=== PATIENT | male | born 1985 | race Hispanic/Latino ===

== ENCOUNTER 2017-09-22 21:29 | Inpatient (IN) | payer OTHER, SELFPAY ==
[~2017-09-22 21:29] MED LIST: ISOVUE-370 76%-LOCM 1 ML ONE
--- NOTE | 2017-09-22 21:59 | RAD ---
RADIOGRAPH OF CHEST SINGLE VIEW 09/22/17 INDICATION: Posttraumatic pain. FINDINGS: Elevation of the right hemidiaphragm. No consolidation. The cardiac silhouette is accentuated by port able technique. IMPRESSION: No focal consolidation. POS: [facility]
--- NOTE | 2017-09-22 22:00 | RAD ---
FRONTAL VIEW PELVIS 09/22/17 INDICATION: Posttraumatic pelvic injury, pain. FINDINGS: No acute fracture or dislocation identified. IMPRESSION: No acute osseous abnormality of the pelvis. POS: [facility]
[2017-09-22] MEDS ORDERED: Adacel (T-DAP) 0.5 ML VIAL ONE (22:05)
[2017-09-22] MEDS ORDERED: CEFAZOLIN/Water 2 GM/20 ML SYRINGE ONE (22:05)
[2017-09-22 22:06] LABS: #Eosinphils 0.1 thou/uL (0.0-0.7); #Lymphocytes 1.1 thou/uL (1.20-3.40); #Monocytes 0.5 thou/uL (0.11-0.59); #Neutrophils 10.9 thou/uL (1.40-6.50); %Basophils 0.3 % (0.0-1.0); %Eosinophils 0.7 % (0.0-10.0); %Lymphocytes 8.7 % (21.0-51.0); %Neutrophils 86.3 % (42.0-75.0); Hemoglobin 14.6 g/dL (14.0-18.0); Mean Corpuscular HGB CONC 34.6 g/dL (32.0-36.0); Mean Corpuscular Hemoglobin 34.5 pg (27.0-31.0); Mean Corpuscular Volume 99.7 fl (80.0-94.0); Platelet Count 281 thou/uL (130-400); RBC Distribution Width 11.9 % (11.5-14.5); Red Blood Cell (RBC) Count 4.24 mill/uL (4.70-6.10); White Blood Cell (WBC) Count 12.6 thou/uL (4.8-10.8)
[2017-09-22 22:12] LABS: PTT 30.1 SEC (22.9-36.1); Prothrombin Time 12.8 SEC (12.0-14.7)
--- NOTE | 2017-09-22 22:13 | CT ---
HEAD CT NONCONTRAST 09/22/17 INDICATION: Posttraumatic injury, pain, altered mental status. FINDINGS: There is a decompressed and comminuted anterior right parietal bone fracture with osseous decompressi on into the intracranial compartment which results in pneumocephalus, posttraumatic edema of the ante rior right cerebral hemisphere and underlying extra-axial hemorrhage likely subdural and subarachnoid in distribution. No significant shift of midline or evidence of ventriculomegaly IMPRESSION: Posttraumatic osseous deformity with depressed comminuted calvarial fracture producing underlying int racranial abnormality to include cerebral edema, and extra-axial hemorrhage as discussed above. Telephone call to ER physician, Patrick Oconnor, placed at 2156 hours, 09/22/17. Code CR POS: [facility]
--- NOTE | 2017-09-22 22:16 | CT ---
CERVICAL SPINE CT: 09/22/17 INDICATION: Neck injury, pain, posttraumatic injury. FINDINGS: There is no craniocervical distraction. No compression deformity or traumatic subluxation. No retropu lsion of bone in to the vertebral canal or acute facet malalignment. IMPRESSION: No acute osseous abnormality of the cervical spine. Notification placed to ER physician, Patrick Oconnor at 2156 hours, 09/22/17. Code CR POS: [facility]
[2017-09-22 22:26] LABS: Acetaminophen Less than 6.0 mcg/mL (10.0-30.0); Alcohol Less than 10 mg/dL (Less than 10); Salicylate Less than 8.0 mg/dL (15.0-30.0)
[2017-09-22 22:27] LABS: ALT (SGPT) 57 U/L (8-55); AST (SGOT) 49 U/L (5-34); Albumin 4.5 g/dL (3.4-4.8); Alkaline Phosphatase 95 U/L (40-150); Anion Gap 12 mmol/L (10-20); BUN (Urea Nitrogen) 9 mg/dL (8.4-25.7); Bilirubin, Total 0.8 mg/dL (0.2-1.2); Calc. Creatinine Clearance 0 mL/min (70-130); Calcium 9.5 mg/dL (7.8-10.44); Carbon Dioxide 28 mmol/L (23-31); Chloride 102 mmol/L (98-107); Estimated GFR-MDRD 85; Globulin 2.9 g/dL (2.4-3.5); Glucose 117 mg/dL (83-110); Potassium 3.5 mmol/L (3.5-5.1); Protein, Total 7.4 g/dL (5.8-8.1); Sodium 138 mmol/L (136-145)
--- NOTE | 2017-09-22 22:33 | CT ---
CT CHEST WITH CONTRAST CT ABDOMEN AND PELVIS WITH CONTRAST CT THORACIC SPINE WITH CONTRAST AND REFORMATTED IMAGING CT LUMBAR SPINE WITH CONTRAST AND REFORMATTED IMAGING 09/22/17 CLINICAL HISTORY: Posttraumatic injury, pain. FINDINGS: There is no evidence of pneumothorax, consolidation, or effusion. Thoracoabdominal aorta is nonaneury smal. There is low density liver which may relate to fatty infiltration. Correlate clinically. There is no acute posttraumatic sequela of the solid abdominal organs identified. The bowel is incompletely assessed without enteric contrast. The moderately distended unopacified urinary bladder is grossly u nremarkable. There is no free air or significant ascites. The imaged osseous structures reveal no acu te abnormality. No evidence of subluxation or compression deformity involving the thoracolumbar spine . IMPRESSION: No definite acute posttraumatic sequela evident. Telephone call of findings placed to the ER physician, Patrick Oconnor, at 2218 hours, 09/22/17. Code CR POS: [facility]
[2017-09-22] MEDS ORDERED: hydrALAZINE 20 MG/ML VIAL SLOW IVP PRN (22:51)
[2017-09-22] MEDS ORDERED: Ondansetron HCl/PF 4 MG/2 ML Vial IVP PRN (22:51)
[2017-09-22] MEDS ORDERED: Dextrose 5% in Water 1,000 ML IV PRN (22:51)
[2017-09-22] MEDS ORDERED: Dextrose 50% Abboject 50 ML SYRINGE SLOW IVP PRN (22:51)
[2017-09-22] MEDS ORDERED: Ondansetron ODT 4 MG TAB PO PRN (22:51)
--- NOTE | 2017-09-23 01:05 | CON ---
DATE OF CONSULTATION: 09/23/2017 HISTORY OF PRESENT ILLNESS: Patient is a 32-year-old man, who was brought to the emergency departmen t by EMS after falling at work from a height of roughly 20 feet fall and had been experiencing roughl y 15-20 minutes loss of consciousness. CT scan was performed that revealed a depressed skull fractur e, the right parietal bone with associated small subarachnoid hemorrhage. The depression is, noted t o have a full width of the calvarium. From neurologic standpoint, the patient is confused and disori ented. He can to tell us his name, date of , current date, or where he is at. PHYSICAL EXAMINATION: NEUROLOGIC: He has a nonfocal exam. He has good strength in the upper and lower extremities, falls on movements. HEENT: Pupils equally round and reactive to light. Extraocular movements are intact. There is no s ensory disturbance that I can discern. He does have a crescent shaped laceration measuring roughly 6 cm in diameter to the right parietal scalp. There is obvious depression in the skull of the parieta l bone at this level. RECOMMENDATION: Neurosurgery's recommendations at this time, would be observation overnight and cont inue n.p.o. status after midnight. He will need a right frontal craniotomy to repair the depressed f racture. Otherwise, I do not have any other additional intervention. Frederic Ulloa PA-C, dictating for Dr. Goodman.
--- NOTE | 2017-09-23 01:05 | HP ---
DATE OF SERVICE: 09/22/2017 ATTENDING PHYSICIAN: Dr. Bentley. TRAUMA ACTIVATION: Level 2. HISTORY OF PRESENT ILLNESS: This is a male approximately 32 years of age, who presented to [place] [facility] via EMS, status post fall reportedly greater than 20 feet. All history obtained from records review, as patient is amnestic of events and remains confused. There is no family or coworkers at bedside to corroborate his history. Patient was evaluated in the emergency room and found to have a scalp laceration, open skull fracture with traumatic brain injury. Upon my evaluation, the patient has a GCS of 14, E4 V4 M6. He is oriented to self only. Neurosurgery is also currently evaluating the patient. Trauma Services was asked to admit. Patient had a chief complaint of headache. PAST MEDICAL HISTORY: Unknown. HOME MEDICATIONS: Unknown. PAST SURGICAL HISTORY: Unknown, but patient is missing multiple toes on the right foot. SOCIAL HISTORY: Patient works at a power plant. Unknown alcohol, tobacco, or substance use. FAMILY HISTORY: Unknown. REVIEW OF SYSTEMS: Unable to obtain secondary to patient's confusion. PHYSICAL EXAMINATION: VITAL SIGNS: Blood pressure 127/83, pulse 107, respirations 18, O2 sat 99% on room air, temperature 98.5. GENERAL: Patient is resting in bed, no acute distress. HEAD: There is a 6-cm right anterior parietal scalp laceration that is curvilinear in shape. It appears to be full thickness. EYES: Pupils were PERRL. Extraocular movements are intact. NECK: Supple. Trachea is midline. C-collar is in place. There is report of posterior cervical tenderness per ER physician exam. CHEST/PULMONARY: Normal work of breathing. No tenderness to palpation. Lungs are clear to auscultation bilaterally. CARDIOVASCULAR: Tachycardic. No obvious murmurs, rubs, or gallops. ABDOMEN: Nontender, nondistended. Bowel sounds are positive. BACK: As being reported as having some tenderness in the mid thoracic region. MUSCULOSKELETAL: Bilateral upper extremities within normal limits. Left lower extremity within normal limits. There is a small abrasion to the right ramirez with multiple right toe amputation. NEUROLOGIC: GCS 14. No focal deficit is noted. LABORATORY FINDINGS: WBC 12.6, hemoglobin 14.6, hematocrit 42.3, platelet count 281. INR 1.0. Sodium 138, potassium 3.5, chloride 102, carbon dioxide 28 , BUN 9, creatinine 0.81, glucose 117. AST 49, ALT 57, lipase within normal limits. Blood alcohol level less than 10. RADIOGRAPHIC FINDINGS: X-ray of the chest was negative for acute cardiopulmonary process. X-ray of the pelvis was negative for acute fracture or dislocation or bony abnormality. CT of the C-spine was negative for acute fracture or dislocation. CT of the chest, abdomen, and pelvis with some right lower lobe consolidation, pulmonary contusion versus aspiration pneumonitis, but read by Radiology having no definite acute post-traumatic sequela. CT of the brain per Radiology read shows depressed comminuted calvarial fracture with evidence of peripheral edema, extraaxial hemorrhage/subdural and subarachnoid hemorrhage. ASSESSMENT: 1. Status post fall. 2. Open skull fracture. 3. Acute traumatic pain. 4. Acute encephalopathy secondary to above/traumatic brain injury/subarachnoid and subdural hemorrhage. PLAN: Admit to Trauma Services. We will admit to CCU for close neurological monitoring. Q.1 hour neuro checks. Neurosurgery has seen and evaluated the patient. They planned for operative intervention in the a.m. Patient should be n.p.o. at this time. Gentle IV fluid hydration. Perioperative pain management. Repeat CT in a.m. per Neurosurgery recommendations. Head of bed greater than 30 degrees. Systolic blood pressure less than 150. Plan for assessment and plan has been discussed with Dr. Bentley at the time of this dictation. [facility]
[2017-09-23] MEDS: Sodium Chloride 0.9% 1,000 ML IV SCH ×3 (01:27→21:15)
[2017-09-23] MEDS: Acetaminophen 1,000 MG in Premix Bag 1 BAG IVPB SCH ×4 (01:35→18:04)
[2017-09-23] MEDS ORDERED: Lorazepam 2 MG/ML VIAL ONE (05:02)
[2017-09-23 05:28] LABS: #Lymphocytes 1.7 thou/uL (1.20-3.40); #Monocytes 0.9 thou/uL (0.11-0.59); #Neutrophils 10.4 thou/uL (1.40-6.50); %Basophils 0.3 % (0.0-1.0); %Eosinophils 0.3 % (0.0-10.0); %Lymphocytes 12.8 % (21.0-51.0); %Monocytes 6.8 % (0.0-10.0); %Neutrophils 79.7 % (42.0-75.0); Hemoglobin 14.7 g/dL (14.0-18.0); Mean Corpuscular HGB CONC 34.3 g/dL (32.0-36.0); Mean Corpuscular Hemoglobin 34.3 pg (27.0-31.0); Mean Platelet Volume 7.5 fL (7.4-10.4); Platelet Count 259 thou/uL (130-400); Red Blood Cell (RBC) Count 4.28 mill/uL (4.70-6.10)
[2017-09-23 05:41] LABS: Anion Gap 15 mmol/L (10-20); BUN (Urea Nitrogen) 7 mg/dL (8.9-20.6); Calc. Creatinine Clearance 133 mL/min (70-130); Calcium 9.4 mg/dL (7.8-10.44); Carbon Dioxide 24 mmol/L (22-29); Chloride 104 mmol/L (98-107); Estimated GFR-MDRD Greater than 90; Glucose 104 mg/dL (70-105); Phosphorus 3.7 mg/dL (2.3-4.7); Potassium 3.7 mmol/L (3.5-5.1); Sodium 139 mmol/L (136-145)
[2017-09-23] MEDS ORDERED: CEFAZOLIN 2 GM in Sodium Chloride 0.9% 100 ML IVPB SCH (06:00)
[2017-09-23] MEDS: CEFAZOLIN/Water 2 GM/20 ML SYRINGE SLOW IVP SCH ×3 (06:07→21:15)
--- NOTE | 2017-09-23 07:55 | PDOC.GSPN ---
Surgery Progress Note: Subj - Subjective Patient reports: no new complaints (sleeping but awakens to questions) Surgery Progress Note: Obj - Vital signs Vital signs: Vital Signs - Most Recent Temp Pulse Resp BP Pulse Ox 98.6 F 97 24 H 100 09/23/17 00:30 09/23/17 00:30 09/23/17 00:30 09/23/17 00:30 - Physical Exam General: no distress Cardiovascular: regular rate and rhythm Respiratory: clear to auscultation Abdomen: soft, non tender Additional exam: Neuro: follows commands Surgery Progress Note: Results - Labs Result Diagrams: 09/23/17 04:20 09/23/17 04:20 Lab results: Laboratory Results - last 24 hr 09/23/17 09/23/17 04:20 04:20 WBC 13.0 H RBC 4.28 L Hgb 14.7 Hct 42.8 MCV 100.0 H MCH 34.3 H MCHC 34.3 RDW 12.0 Plt Count 259 MPV 7.5 Neutrophils % 79.7 H Lymphocytes % 12.8 L Monocytes % 6.8 Eosinophils % 0.3 Basophils % 0.3 Neutrophils # 10.4 H Lymphocytes # 1.7 Monocytes # 0.9 H Eosinophils # 0.0 Basophils # 0.0 Sodium 139 Potassium 3.7 Chloride 104 Carbon Dioxide 24 Anion Gap 15 BUN 7 L Creatinine 0.77 Estimated GFR (MDRD) Greater than 90 Glucose 104 Calcium 9.4 Phosphorus 3.7 Magnesium 2.0 Surgery Progress Note: A/P - Problem (1) Skull fracture Current Visit: Yes Code(s): S02.91XA - UNSP FRACTURE OF SKULL, INIT ENCNTR FOR CLOSED FRACTURE Status: Acute Assessment and Plan: To OT today for washout and closure
[2017-09-23] MEDS ORDERED: Thrombin 5000 UNITS/5 ML VIAL ONE (08:15)
[2017-09-23] MEDS ORDERED: Fentanyl 100 MCG/2 ML VIAL ONE ×2 (08:15→09:32)
[2017-09-23] MEDS ORDERED: Lidocaine 0.5%/Epinephrine 1:200,000 50 ml Vial ONE (08:15)
[2017-09-23] MEDS ORDERED: Sodium Chloride 0.9% 10 ML ONE (08:16)
--- NOTE | 2017-09-23 08:19 | CT ---
PRELIMINARY REPORT/[facility]/EMERGENCY AFTER HOURS PROCEDURE: EXAM: CT Head Without Intravenous Contrast EXAM DATE/TIME: 09/23/2017 5:17 AM CLINICAL HISTORY: 32 years old, male; Condition or disease; Other: F/u evaluation of skull FX, tbi; Additional info: Pr evious exam sent to [facility] under the name richard devries accession # [id number] TECHNIQUE: Axial computed tomography images of the head/brain without intravenous contrast. COMPARISON: No relevant prior studies available. FINDINGS: Brain: Right frontal skull fracture with 6mm depression. There is small subarachnoid blood and possib le intraparenchymal contusions underlying the fracture Ventricles: Unremarkable for patient age. No significant midline shift Soft tissues: No acute findings. Sinuses: Unremarkable. Mastoid air cells: No significant mastoid effusion. IMPRESSION: 1: Right frontal skull fracture with 6mm depression. 2: There is small subarachnoid blood and possible intraparenchymal contusions underlying the fracture Thank you for allowing us to participate in the care of your patient. Dictated and Authenticated by: Richard Mackay MD 09/23/2017 6:13 AM Central Time ([place] & [place]) FINAL REPORT CT HEAD NONCONTRAST: DATE: 09/23/17. TIME: Performed on an emergency basis at 0518 hours. HISTORY: Skull fracture. Traumatic brain injury. Followup. COMPARISON: 09/22/17. FINDINGS: Findings agree with the preliminary report from [facility]. Depressed right skull fracture an d underlying subarachnoid hemorrhage are stable. No new abnormalities are demonstrated. POS: [facility]
[2017-09-23] MEDS ORDERED: FLU VACC QS2017-18 36 mo. & older 0.5 ML SYRINGE IM ONE (09:00)
--- NOTE | 2017-09-23 09:17 | PRG ---
DATE OF SERVICE: 09/23/2017 SUBJECTIVE: Mr. Fitzpatrick was admitted late last evening, status post fall. He presented to the ER with an open depressed skull fracture. He had GCS of 14 upon arrival. Of note, he is a male th at does not speak Indian. We did make attempts to communicate with him via interpreters. Over the course of the last several hours in the ICU, he has remained stable. His major injury at this point remains his skull fracture. A repeat CT examination revealed stability with respect to a small degre e of extraaxial blood that was present. The patient does remain quite concussed and therefore he is confused. The plan will be surgical repair of the skull fracture and scalp laceration. We have not been able t o reach any additional family or friends for the purposes of consent. The patient himself remains to o confused and not oriented enough to provide consent form self. I do believe, however, this is in t he best interest of the patient to treat him surgically, as not doing so would result in permanent de fect of the skull and a high risk of infection.
[2017-09-23] MEDS ORDERED: Bacitracin Zinc Ointment 30 gm TUBE ONE (10:22)
[2017-09-23] MEDS ORDERED: HYDROcodone/Acetaminophen 7.5/325 mg Tablet PO PRN ×2 (10:30)
[2017-09-23] MEDS ORDERED: Ondansetron HCl/PF 4 MG/2 ML Vial IVP PRN (10:46)
[2017-09-23] MEDS ORDERED: Promethazine HCl 25 MG/ML VIAL SLOW IVP PRN (10:46)
[2017-09-23] MEDS ORDERED: Promethazine HCl 25 MG/ML VIAL IM PRN (10:46)
[2017-09-23] MEDS ORDERED: HYDROmorphone 2 MG/ML VIAL SLOW IVP PRN (10:46)
--- NOTE | 2017-09-23 10:57 | OP ---
DATE OF OPERATION: 09/23/2017 SURGEON: Nain Goodman M.D. STATION CAPTAIN: Frederic Ulloa PA-C INDICATION: Open depressed skull fracture. DIAGNOSIS: Open depressed skull fracture. ANESTHESIA: General. PROCEDURES PERFORMED: Elevation and treatment of depressed skull fracture and repair of complex scal p wound. TECHNIQUE: The patient was brought into the operating room and placed under general anesthesia. He was placed on the table in a supine position. A crescent-shaped defect was noted over the right post erior aspect of the frontal bone. This area was shaved and prepped and draped. After an appropriate operative pause, the traumatic incision was extended both laterally and medially for optimal exposur e of the underlying skull defect. Several bone fragments were removed and the other bone fragments w ere elevated to decompress the underlying surface of the brain. The area was copiously irrigated. T he skin and wound margins were debrided. After obtaining hemostasis and cleaning the wound, the bone was fashioned to fill the cranial defect using plates and screws. A subgaleal drain was placed and brought out through a separate puncture site from within the skin. The wound was closed in several l ramírez to repair the wound. The procedure came to an end without complication.
--- NOTE | 2017-09-23 11:33 | PRG ---
DATE OF SERVICE: 09/23/2017 Mr. Fitzpatrick this morning is stable. Last night he had been a little agitated leading up to his repeat CAT scan which revealed a stable depressed skull fracture of the right parietal bone with minimal deena rounding epidural and subarachnoid hemorrhage. Overall his functional status is the same as last nig ht, although he is a little more drowsy and difficult to awaken. The plan this morning will be to ge t him down for a right parietal bone crani-fracture or bone fracture lift to correct his depressed fr acture and to debride and washout the laceration there. We will be pursuing this in the next 30 galina david to an hour.
[2017-09-23] MEDS: Famotidine/PF 20 mg/2ml Vial SLOW IVP SCH (12:55)
[2017-09-23 13:12] VITALS: BMI 24.5
[2017-09-23] MEDS ORDERED: Propofol 200 MG/20 ML VIAL ONE (13:50)
[2017-09-23] MEDS ORDERED: Lidocaine 1% PF 5 ML VIAL ONE (13:50)
[2017-09-23] MEDS ORDERED: Dexamethasone 20 MG/5 ML VIAL ONE (13:50)
[2017-09-23] MEDS ORDERED: Glycopyrrolate 0.2 MG/ML 5 ML SYRINGE ONE (13:50)
[2017-09-23] MEDS ORDERED: PHENYLEPHRINE-NS 100 MCG/ML 10 ML SYRINGE ONE (13:50)
[2017-09-23] MEDS ORDERED: Ondansetron HCl/PF 4 MG/2 ML Vial ONE (13:50)
--- NOTE | 2017-09-23 13:55 | PRG ---
DATE OF SERVICE: 09/23/2017 SUBJECTIVE: The patient is hospital day #2 status post fall from approximately 20 feet, which he serena tained a depressed skull fracture. This morning, he was taken to the operating room by Neurosurgery, where he underwent an elevation and treatment of depressed skull fracture and repair of complex scal p wounds. The patient reportedly tolerated this procedure well and at the time of me seeing him on [facility] Critical Care Unit, he was still very drowsy postoperatively. He would open his eyes briefly, but would not follow any commands or verbalize. OBJECTIVE: VITAL SIGNS: Temperature 98.7, heart rate 89, respirations 14, oxygen saturation 100% on 2 liters vi a nasal cannula and blood pressure 107/68. GENERAL: The patient is resting in bed. The patient's [place] Coma Scale was [id number]. HEENT: The patient has a JAMISON drain located near the scalp with a clean, dry, and intact dressing. Pu pils are equal and reactive. Ears are clear without drainage. Nose is clear without drainage. Orop harynx appears clear. NECK: Trachea is midline. No JVD. CHEST: Clear to auscultation with moderate inspiratory and expiratory effort. HEART: Regular rate and rhythm. ABDOMEN: Soft, flat and nontender with hypoactive bowel sounds. EXTREMITIES: Capillary refill is less than 3 seconds. Pulses are 2+ in all 4 extremities. The ridge ent is moving all 4 extremities, but not to command. LABORATORY DATA: This morning, white blood cell count 13.0, hemoglobin 14.7, hematocrit 42.8 and david telets 259. Sodium 139, potassium 3.7, chloride 104, CO2 of 24, BUN 7, creatinine 0.77, glucose 104, magnesium 2.0 and phosphorus 3.7. ASSESSMENT AND PLAN: 1. Status post fall. 2. Depressed skull fracture. 3. Status post surgical procedure to elevate depressed skull fracture and repair of complex scalp wo und. Plan will be to continue the patient on the Critical Care Unit for serial neurologic exams and continue treatment guided by his [place] Coma Scale. Evaluation, examination, laboratory and radiogr aphic findings were discussed with Dr. Bentley at rounds this morning.
[2017-09-24] MEDS: Acetaminophen 1,000 MG in Premix Bag 1 BAG IVPB SCH (00:28)
--- NOTE | 2017-09-24 00:29 | PRG ---
DATE OF SERVICE: 09/23/2017 SUBJECTIVE: The patient is a 32-year-old male hospital day #2 status post fall from approximately 20 feet with depressed skull fracture. The patient's postop day 0 from elevation and treatment of depr essed skull fracture and repair of complex scalp wound. OBJECTIVE: Vital signs have been reviewed; otherwise stable. Physical exam is unchanged. is n oted. ASSESSMENT AND PLAN: We will continue care as noted in daily progress note. Continue to monitor. We will reassess in a.m. Followup a.m. labs as well.
[2017-09-24] MEDS: CEFAZOLIN/Water 2 GM/20 ML SYRINGE SLOW IVP SCH ×2 (05:54→14:20)
[2017-09-24] MEDS: Sodium Chloride 0.9% 1,000 ML IV SCH ×3 (05:59→14:20)
--- NOTE | 2017-09-24 07:27 | PRG ---
DATE OF SERVICE: 09/24/2017 HISTORY: Mr. Fitzpatrick is now in the first postoperative day after a right parietal craniectomy and repa ir of depressed skull fracture. He is doing very well. His drain is starting to taper and for me it looks to be clotted off at this point. We will go ahead and remove this and re-bandage the scalp. I think it is safe for him to start eating and to transition to a bedside chair. If he tolerates all this well, we can likely transition him to the floor. I will check him later to see how he is progr essing.
[2017-09-24] MEDS: Famotidine/PF 20 mg/2ml Vial SLOW IVP SCH (09:47)
--- NOTE | 2017-09-24 09:53 | PDOC.GSPN ---
Surgery Progress Note: Subj - Subjective Narrative: Patient awake but confused Surgery Progress Note: Obj - Vital signs Vital signs: Vital Signs - Most Recent Temp Pulse Resp BP Pulse Ox 98.5 F 75 16 98 09/24/17 08:00 09/23/17 20:00 09/23/17 20:00 09/23/17 20:00 - Physical Exam General: other (Confused) Cardiovascular: regular rate and rhythm Respiratory: clear to auscultation Abdomen: soft, non tender Surgery Progress Note: Results - Labs Result Diagrams: 09/23/17 04:20 09/23/17 04:20 Surgery Progress Note: A/P - Problem (1) Skull fracture Current Visit: Yes Code(s): S02.91XA - UNSP FRACTURE OF SKULL, INIT ENCNTR FOR CLOSED FRACTURE Status: Acute Assessment and Plan: Confusion hopefully improves in next few days Ok to transfer to floor
[2017-09-24] MEDS ORDERED: traMADol HCl 50 MG TAB PO PRN ×2 (10:09)
[2017-09-24] MEDS ORDERED: Acetaminophen 500 MG TAB PO SCH (13:00)
[2017-09-24] MEDS: Acetaminophen 325 MG TAB PO SCH ×2 (16:53→20:30)
[2017-09-24] MEDS ORDERED: HYDROcodone/Acetaminophen 7.5/325 mg Tablet PO PRN (19:34)
[2017-09-24] MEDS: Cephalexin 250 MG CAP PO SCH (20:30)
--- NOTE | 2017-09-24 23:12 | PRG ---
DATE OF SERVICE: 09/24/2017 SUBJECTIVE: This is a 32-year-old gentleman status post fall with traumatic brain injury and open sk ull fracture. He is postop day #1 status post right partial craniotomy and repair of depressed skull fracture. He was moved to the general surgical floor earlier today. Language barrier makes sarahyi jorje chief complaint difficult this evening, but patient did deny pain. He has been hemodynamically st able. OBJECTIVE: VITAL SIGNS: Reviewed and stable. The patient is afebrile, resting in bed, in no acute distress. B reathing is nonlabored. EXTREMITIES: Moves all extremities x4. ASSESSMENT AND PLAN: As documented in daily progress note. Continue care was ordered. Continue to monitor.
[2017-09-25] MEDS: Acetaminophen 325 MG TAB PO SCH ×5 (04:20→23:53)
--- NOTE | 2017-09-25 08:28 | PRG ---
DATE OF SERVICE: 09/25/2017 Mr. Fitzpatrick is a 32-year-old gentleman that sustained trauma with an associated depressed skull fractur e. He underwent operative repair. He is now 3 days out from presentation and surgery. From a neuro surgical perspective, he is recovering as I anticipated. His wound is clean, dry, and intact. From my perspective, he can be dismissed once the disposition has been obtained. We will follow up with jacob quinones in approximately 2 weeks in the outpatient setting.
[2017-09-25] MEDS: Cephalexin 250 MG CAP PO SCH ×2 (09:18→20:27)
[2017-09-25] MEDS: Famotidine/PF 20 mg/2ml Vial SLOW IVP SCH (09:18)
[2017-09-25] MEDS: Senokot S 8.6-50 MG TAB PO SCH ×2 (09:19→20:27)
[2017-09-25] MEDS: Polyethylene Glycol 3350 17 GM Packet PO SCH (09:19)
--- NOTE | 2017-09-25 13:31 | PRG ---
DATE OF SERVICE: 09/25/2017 Mr. Fitzpatrick is now postop day #2 following a right parietal skull fracture repair. He is doing well. He has been transferred to the floor. He has minimal pain at this time. There is still a language b arrier unfortunately, but it appears that he is in minimal pain, has been up on his feet, he is eatin g well. At this point not, it is just a function of finding proper disposition for him which I know social welfare clerk is working on. We will continue to follow.
[2017-09-25] MEDS: Famotidine 20 MG TAB PO SCH (20:27)
--- NOTE | 2017-09-25 23:11 | PRG ---
DATE OF SERVICE: 09/25/2017 SUBJECTIVE: This is a 32-year-old gentleman status post fall greater than 20 feet with a traumatic brain injury. The patient continues to work with physical therapy, occupational therapy. He is stable from a neurological standpoint. Awaiting final disposition. Pulmonary evaluation. The patient vocalized a mild headache, but otherwise had no complaints. OBJECTIVE: VITAL SIGNS: Reviewed and stable. The patient is afebrile, resting in bed in no acute distress. Breathing is nonlabored. EXTREMITIES: Moves all extremities x4. NEUROLOGICAL: GCS 14, secondary to confusion. ASSESSMENT AND PLAN: As documented in daily progress note. Continue care as ordered. Continue to monitor. Await final disposition, possibly to a rehab facilities in [facility]. DANIELA
--- NOTE | 2017-09-25 23:29 | PRG ---
DATE OF SERVICE: 09/25/2017 ATTENDING PHYSICIAN: Callum Canela DO SUBJECTIVE: The patient is now hospital day 4 status post fall from approximately 20 feet in which he sustained a depressed skull fracture. He is now postop day 2 status post procedure to elevate and treat the depressed skull fracture as well as repair of complex scalp wound. The patient has been transferred to the surgical floor from the ICU. On examination, the patient has been complicated by language barrier as the patient only speaks an unusual dialect of [place] that translators have reportedly had a hard time understanding. He vocalizes no complaints this morning and the dispatcher maintenance service reports no difficulty. OBJECTIVE: VITAL SIGNS: Blood pressure 122/86, pulse 85, temperature 98.8, respirations 18 , O2 sat 99% on room air. GENERAL APPEARANCE: The patient is resting in bed. He is slow to arouse, but wakes and was conversing with staff. RESPIRATORY: The patient's breath sounds are clear to auscultation bilaterally with normal effort. CARDIOVASCULAR: He has a regular rate and rhythm. EXTREMITIES: He is neurovascularly intact x4. He moves all extremities. NEUROLOGIC: The patient is alert and oriented to person and place today. His GCS is E3 V4 M6. LABORATORY FINDINGS: There are no labs to review today. RADIOGRAPHIC FINDINGS: There are no radiographs reviewed today. ASSESSMENT AND PLAN: 1. Status post fall from height. 2. Depressed skull fracture status post surgical repair. 3. Altered mental status. PLAN: 1. Plan will be to continue supportive care measures as ordered. Continue to trend GCS daily. 2. Case management is working to find placement options for this patient on discharge and it is unclear whether workman's compensation will apply since he was injured on the job and if not whether he will go to rehab or neuro rehabilitation. Case management is following. The patient was seen and examined on rounds this morning with Dr. Canela, who agrees with this assessment and plan. [facility]
[2017-09-26] MEDS: Acetaminophen 325 MG TAB PO SCH ×4 (05:30→23:39)
[2017-09-26 05:57] LABS: #Eosinphils 0.3 thou/uL (0.0-0.7); #Lymphocytes 1.3 thou/uL (1.20-3.40); #Monocytes 0.5 thou/uL (0.11-0.59); #Neutrophils 4.9 thou/uL (1.40-6.50); %Basophils 0.6 % (0.0-1.0); %Monocytes 7.2 % (0.0-10.0); %Neutrophils 69.3 % (42.0-75.0); Hemoglobin 13.9 g/dL (14.0-18.0); Mean Corpuscular HGB CONC 34.5 g/dL (32.0-36.0); Mean Corpuscular Hemoglobin 34.5 pg (27.0-31.0); Mean Platelet Volume 6.6 fL (7.4-10.4); Platelet Count 294 thou/uL (130-400); RBC Distribution Width 11.9 % (11.5-14.5); Red Blood Cell (RBC) Count 4.03 mill/uL (4.70-6.10)
[2017-09-26 06:32] LABS: Anion Gap 9 mmol/L (10-20); BUN (Urea Nitrogen) 6 mg/dL (8.9-20.6); Calc. Creatinine Clearance 146 mL/min (70-130); Calcium 9.5 mg/dL (7.8-10.44); Carbon Dioxide 31 mmol/L (22-29); Chloride 103 mmol/L (98-107); Estimated GFR-MDRD Greater than 90; Glucose 87 mg/dL (70-105); Magnesium 2.1 mg/dL (1.6-2.6); Phosphorus 3.5 mg/dL (2.3-4.7); Potassium 3.5 mmol/L (3.5-5.1); Sodium 139 mmol/L (136-145)
[2017-09-26] MEDS ORDERED: Magnesium Citrate 300 ML BOT PO SCH (08:30)
[2017-09-26] MEDS ORDERED: traMADol HCl 50 MG TAB PO PRN (08:31)
[2017-09-26] MEDS ORDERED: traMADol HCl 50 MG TAB PO SCH (08:45)
[2017-09-26] MEDS: Cephalexin 250 MG CAP PO SCH ×2 (09:58→20:15)
[2017-09-26] MEDS: Senokot S 8.6-50 MG TAB PO SCH ×2 (09:59→20:16)
[2017-09-26] MEDS: Polyethylene Glycol 3350 17 GM Packet PO SCH (09:59)
[2017-09-26] MEDS: traMADol HCl 50 MG TAB PO SCH ×3 (10:01→20:15)
[2017-09-26] MEDS: Famotidine 20 MG TAB PO SCH ×2 (10:02→20:15)
--- NOTE | 2017-09-26 14:18 | PRG-2 ---
DATE OF SERVICE: 09/26/2017 ATTENDING PHYSICIAN: Dr. Callum Canela. SUBJECTIVE: This is the hospital day #4 for a 32-year-old male status post fall from approximately 2 0 feet where he sustained a depressed skull fracture of the right parietal bone. Postoperative day # 3, status post elevation of the fracture with repair of the scalp wound. There were no acute events overnight. The patient is doing well. He stated that he has some headache, which is generally contr olled. OBJECTIVE: VITAL SIGNS: Temperature 98.1, pulse 63, respiratory 16, O2 sat 97% on room air, blood pressure 103/ 65. GENERAL: The patient is resting in bed, conversing with staff via utilization management manager, in no acute distress. HEENT: Normocephalic, healing surgical wound over the right parietal area. RESPIRATORY: Clear to auscultation bilateral. CARDIOVASCULAR: Regular rate and rhythm. EXTREMITIES: Neurovascularly intact x4. NEUROLOGIC: Patient is oriented to person and place, thought he was in [place] today, but did know santiago t he was in a hospital. GCS is 15. No focal neurological deficits noted. ASSESSMENT: 1. Status post fall from height. 2. Status post surgical repair of a depressed skull fracture. PLAN: 1. The patient is now appropriate for rehabilitation. He will be returning home to [place] for his rehab and referrals have been put in still pending placement location. We will continue to follow w ith the case management notes. 2. Continue supportive care and therapy while here until placement which will hopefully be tomorrow. The patient is seen and examined by Dr. Callum Canela who agrees with above assessment and plan.
--- NOTE | 2017-09-26 20:25 | PRG ---
DATE OF SERVICE: 09/26/2017 Mr. Fitzpatrick this morning again is stable. Incision looks dry, well approximated, no drainage or dehisc ence. He denies any significant pain. Again, at this time, it looks like we are just awaiting dispo sition. At this time, Neurosurgery will sign off. Frederic Ulloa PA-C dictating for Dr. Goodman.
--- NOTE | 2017-09-26 20:50 | PRG ---
DATE OF SERVICE: 09/26/2017 SUBJECTIVE: No acute events at this time. The patient is resting comfortably in bed. OBJECTIVE: Vital signs have been reviewed, otherwise stable. Physical exam is unremarkable, otherwi se stated in progress note. ASSESSMENT AND PLAN: Continue care as noted in the daily progress note. Continue to monitor. Disch arge disposition is pending.
[2017-09-27] MEDS: traMADol HCl 50 MG TAB PO SCH ×4 (02:45→20:22)
[2017-09-27] MEDS: Acetaminophen 325 MG TAB PO SCH ×4 (05:53→23:53)
[2017-09-27] MEDS: Senokot S 8.6-50 MG TAB PO SCH ×2 (08:24→20:22)
[2017-09-27] MEDS: Polyethylene Glycol 3350 17 GM Packet PO SCH (08:25)
[2017-09-27] MEDS: Famotidine 20 MG TAB PO SCH ×2 (08:25→20:22)
[2017-09-27] MEDS: Cephalexin 250 MG CAP PO SCH ×2 (08:28→20:22)
--- NOTE | 2017-09-27 18:18 | PRG ---
DATE OF SERVICE: 09/27/2017 ATTENDING PHYSICIAN: Callum Canela DO SUBJECTIVE: The patient is hospital day 5 status post surgical repair of a depressed skull fracture of the right parietal bone, as well as repair of overlying laceration. He has continued to progress neurologically. He was ambulating around the floor this morning with help from physical therapy. He reports that his pain is well controlled this morning. OBJECTIVE: VITAL SIGNS: BP 103/69, pulse 76, temperature 97.5, respirations 16, O2 sat 93% on room air. GENERAL APPEARANCE: The patient is resting in bed this morning. He is somewhat drowsy, but easily a rousable and conversational with staff. He is in no acute distress. HEENT: He is normocephalic. He has a surgical wound on the right parietal area, which is healing we ll. RESPIRATORY: His lungs were clear to auscultation bilaterally with regular effort. CARDIOVASCULAR: He has a regular rate and rhythm. Normal S1 and S2. No murmurs, gallops, or rubs. EXTREMITIES: He is neurovascularly intact x4. NEUROLOGIC: The patient is oriented to person and place. His GCS is 15 now. He has no lateralizing signs or focal deficits. LABORATORY FINDINGS: There were no labs to review today. RADIOGRAPHIC FINDINGS: There were no radiographs to review today. ASSESSMENT: 1. Status post fall from height. 2. Status post surgical repair of depressed skull fracture. PLAN: 1. The patient is medically stable for discharge to rehab pending placement. We are attempting to p lace him in [place] as that is where he is from. Case management is following. 2. Continue supportive care and pain control as needed. Continue to work with physical therapy and occupational therapy for mobility. This patient was seen and examined along with Dr. Callum Canela on rounds, who agrees with the assess ment and plan.
--- NOTE | 2017-09-27 21:42 | PRG ---
DATE OF SERVICE: 09/27/2017 SUBJECTIVE: No acute events during the day. No new complaints at this time. This is a 32-year-old male status post traumatic brain injury. OBJECTIVE: Vital signs have been reviewed, otherwise have been stable. Physical exam is unchanged o ther than noted in the daily progress note. ASSESSMENT AND PLAN: Continue care as noted in daily progress note. Continue to monitor. Discharge disposition is pending at this time.
[2017-09-28] MEDS: traMADol HCl 50 MG TAB PO SCH ×4 (02:30→20:52)
[2017-09-28] MEDS: Acetaminophen 325 MG TAB PO SCH ×3 (05:08→18:04)
[2017-09-28] MEDS: Senokot S 8.6-50 MG TAB PO SCH ×2 (08:28→20:52)
[2017-09-28] MEDS: Cephalexin 250 MG CAP PO SCH ×2 (08:28→20:51)
[2017-09-28] MEDS: Famotidine 20 MG TAB PO SCH ×2 (08:28→20:51)
[2017-09-28] MEDS: Polyethylene Glycol 3350 17 GM Packet PO SCH (08:29)
--- NOTE | 2017-09-28 16:18 | PRG ---
DATE OF SERVICE: 09/28/2017 ATTENDING PHYSICIAN: Dr. Callum Canela. SUBJECTIVE: The patient is a 32-year-old male. The patient is postoperative day #5 status post elevation and treatment of depressed skull fracture and repair of complex scalp wound. Initially, the patient was confused with a GCS between 13 and 14. Mental status has improved since admission. GCS has now remained 15 for past 24 hours. Sitter was able to be discontinued yesterday and patient has progressed favorably overnight. He is not confused at this point and is appropriately interactive. He denies pain. OBJECTIVE: VITAL SIGNS: Temperature 98.4, pulse 89, respirations 12, O2 sat 97% on room air, blood pressure 111/71. CONSTITUTIONAL: A 32-year-old male sitting up in bed, in no acute distress, well-developed, well-nourished. HEENT: Surgical incision, right parietal scalp closed with agus. No signs or symptoms of infection. Normocephalic. RESPIRATORY: Respirations even and unlabored. Bilateral breath sounds clear. CARDIOVASCULAR: Regular rate and rhythm. ABDOMEN: Soft, nontender, nondistended. EXTREMITIES: Moves all extremities well. Cap refill brisk. Neurovascularly intact. NEUROLOGIC: GCS of 15. Awake, alert, oriented x3. Appropriately interactive. ASSESSMENT: 1. Status post fall from height. 2. Status post surgical repair of depressed skull fracture. 3. GCS 15 overnight. No impulsiveness noted. A sitter was not required. PLAN: 1. Continue care on surgical floor as ordered. 2. Continue physical and occupational therapy until placement is arranged. 3. Case management for discharge planning. The patient is a worker's compensation case and will discharge to appropriate rehabilitation when approval received. The patient was seen and examined with Dr. Canela, attending surgeon, who agrees with the assessment and plan. [facility]
[2017-09-29] MEDS: traMADol HCl 50 MG TAB PO SCH ×4 (03:21→20:53)
[2017-09-29] MEDS: Acetaminophen 325 MG TAB PO SCH ×4 (06:18→17:52)
[2017-09-29] MEDS: Cephalexin 250 MG CAP PO SCH ×2 (08:40→20:19)
[2017-09-29] MEDS: Famotidine 20 MG TAB PO SCH ×2 (08:40→20:19)
[2017-09-29] MEDS: Polyethylene Glycol 3350 17 GM Packet PO SCH (08:40)
[2017-09-29] MEDS: Senokot S 8.6-50 MG TAB PO SCH ×2 (08:41→20:20)
--- NOTE | 2017-09-29 17:52 | PRG ---
DATE OF SERVICE: 09/29/2017 ATTENDING PHYSICIAN: Callum Canela DO SUBJECTIVE: The patient is a 32-year-old male who is now postop day #6 status post elevation and indira atment of depressed skull fracture and repair of complex scalp wound. The patient continues to impro ve neurologically. He is now has a GCS of 15, which has been the case for more than 24 hours. He no longer is requiring any use of sitter and would be appropriate for discharge to rehab pending placem ent. OBJECTIVE: VITAL SIGNS: BP 110/75, pulse 68, temperature 97.6, respirations 16, O2 sat 98% on room air. GENERAL: A well-nourished, well-developed adult male, in no acute distress. HEENT: He has a surgical incision in right parietal scalp that is closed with agus. He is otherw ise atraumatic. He is normocephalic. RESPIRATORY: His breath sounds are clear to auscultation bilaterally with normal effort. CARDIOVASCULAR: Regular rate and rhythm. Normal S1 and S2. ABDOMEN: Soft, nontender, nondistended. His bowel sounds are normal. EXTREMITIES: He moves all extremities well. Neurovascular intact x4. NEUROLOGIC: His GCS is 15. He is alert and oriented x3. ASSESSMENT: 1. Status post fall from height. 2. Traumatic subarachnoid hemorrhage and subdural hematoma. 3. Status post surgical repair of depressed skull fracture. PLAN: 1. Continue PT and OT and supportive care measures as ordered. 2. Patient is medically stable for discharge at this point, pending placement in rehabilitation. Th e patient is a worker's compensation case and will be discharged to appropriate rehab once approval w as received. Case management is following. The patient was seen and examined along with Dr. Canela on rounds, who agrees with the assessment and plan.
[2017-09-30] MEDS: Acetaminophen 325 MG TAB PO SCH ×5 (00:13→23:31)
[2017-09-30] MEDS: traMADol HCl 50 MG TAB PO SCH ×4 (02:57→20:36)
[2017-09-30] MEDS: Cephalexin 250 MG CAP PO SCH ×2 (08:44→20:36)
[2017-09-30] MEDS: Senokot S 8.6-50 MG TAB PO SCH ×2 (08:44→20:37)
[2017-09-30] MEDS: Famotidine 20 MG TAB PO SCH ×2 (08:44→20:37)
[2017-09-30] MEDS: Polyethylene Glycol 3350 17 GM Packet PO SCH (08:53)
--- NOTE | 2017-09-30 12:29 | PRG ---
DATE OF SERVICE: 09/30/2017 ATTENDING PHYSICIAN: Dr. Callum Canela. SUBJECTIVE: The patient is a 32-year-old male who is now postoperative day 7 status post elevation and treatment of depressed skull fracture and repair of complex scalp wound. The patient has been neurologically stable. He has remained GCS of 15. He is ambulatory with assistance. He is appropriate for discharge to rehabilitation. OBJECTIVE: VITAL SIGNS: Temperature 97.7, pulse 74, respirations 16, O2 sat 97% on room air, blood pressure 109/65. GENERAL: Well-nourished, well-developed male in no acute distress. HEENT: Surgical incision right parietal scalp closed with agus. No evidence of infection. RESPIRATORY: Bilateral breath sounds clear. No respiratory distress. CARDIOVASCULAR: Regular rate and rhythm. Heart sounds normal. ABDOMEN: Soft, nontender, and nondistended. Bowel sounds normal. EXTREMITIES: Moves all extremities well. Neurovascularly intact x4. NEUROLOGIC: GCS of 15. Awake, alert, and oriented x3. ASSESSMENT: 1. Status post fall from height. 2. Traumatic subarachnoid hemorrhage and subdural hematoma. 3. Status post surgical repair of depressed skull fracture and extensive scalp laceration. PLAN: 1. Continue PT/OT as ordered on surgical floor. 2. Discharged to rehab when we received acceptance. It was planned for patient to discharge to [place] to a rehab there. Due to the patient's medication schedule, he will need to have access to medication administration en route. He will also need frequent breaks and close supervision. 3. Pepcid for PUD prophylaxis. 4. Patient is ambulatory with assistance at this time. We will not start chemical DVT prophylaxis secondary to recent head and intracranial trauma. The patient was seen and examined with Dr. Canela who agrees with the assessment and plan. [facility]
--- NOTE | 2017-09-30 17:05 | EKG ---
Test Reason : Blood Pressure : / mmHG Vent. Rate : 081 BPM Atrial Rate : 081 BPM P-R Int : 148 ms QRS Dur : 092 ms QT Int : 368 ms P-R-T Axes : 076 091 032 degrees QTc Int : 427 ms Normal sinus rhythm Rightward axis Borderline ECG Confirmed by HOSSEIN REILLY D.O. ([id number]), pre sales architect EVELIO OLIVER ([id number]) on 09/30/2017 5:04:19 PM Referred By: MELBA Confirmed By:HOSSEIN REILLY D.O.
[2017-10-01] MEDS: traMADol HCl 50 MG TAB PO SCH ×4 (02:40→21:15)
[2017-10-01] MEDS: Acetaminophen 325 MG TAB PO SCH ×4 (05:53→23:31)
[2017-10-01] MEDS: Cephalexin 250 MG CAP PO SCH ×2 (08:05→21:13)
[2017-10-01] MEDS: Famotidine 20 MG TAB PO SCH ×2 (08:05→21:15)
[2017-10-01] MEDS: Polyethylene Glycol 3350 17 GM Packet PO SCH (08:53)
[2017-10-01] MEDS: Senokot S 8.6-50 MG TAB PO SCH ×2 (08:53→21:15)
--- NOTE | 2017-10-01 15:20 | PRG ---
DATE OF SERVICE: 10/01/2017 ATTENDING PHYSICIAN: Dr. Callum Canela. SUBJECTIVE: The patient is a 32-year-old male, who is now postoperative day #8 status post elevation and treatment of depressed skull fracture and repair of complex scalp wound. Today, he is seen awak e and alert, sitting up in bed, and quite talkative. He reports his memory has started to come back and he has many questions regarding events surrounding the fall as well as what has happened over the last 9 days in the hospital. He is a GCS of 15 today. He is ambulatory with assistance. He report s pain is well controlled. He has been neurologically stable. OBJECTIVE: VITAL SIGNS: Temperature 97.6, pulse 80, respirations 16, O2 sat 100% on room air, blood pressure 12 4/86. GENERAL: Well-nourished, well-developed male, in no acute distress. HEENT: Surgical incision right parietal scalp closed with agus. No evidence of infection. RESPIRATORY: Bilateral breath sounds clear. No respiratory distress. CARDIOVASCULAR: Regular rate and rhythm. Heart sounds normal. ABDOMEN: Soft, nontender, nondistended. Bowel sounds normal. EXTREMITIES: Moves all extremities well. Neurovascularly intact x4. NEUROLOGIC: GCS 15, awake, alert, oriented x3. ASSESSMENT: 1. Status post fall from height. 2. Traumatic subarachnoid hemorrhage and subdural hematoma. 3. Status post surgical repair of depressed skull fracture and extensive scalp laceration. PLAN: 1. Continue OT and PT as ordered. 2. Discharge to rehab when acceptance received. Patient will be discharged to [place] to rehab the . He is getting pain medicine on a regular basis, as he is still having some pain in his head and generalized soreness. He is sometimes still impulsive and needs close observation with the ability t o medicate as indicated. This must be considered if he is going to be discharged to a rehab that is a great distance away. 3. Pepcid for PUD prophylaxis. 4. We will not give chemical DVT prophylaxis at this time due to head injury. The patient is quite ambulatory and should be encouraged to ambulate with assistance. The patient was seen and examined with Dr. Canela, who agrees with the assessment and plan.
[2017-10-02] MEDS: traMADol HCl 50 MG TAB PO SCH ×4 (03:28→20:54)
[2017-10-02] MEDS: Acetaminophen 325 MG TAB PO SCH ×4 (05:42→19:39)
[2017-10-02] MEDS: Polyethylene Glycol 3350 17 GM Packet PO SCH (08:44)
[2017-10-02] MEDS: Famotidine 20 MG TAB PO SCH ×2 (08:44→20:53)
[2017-10-02] MEDS: Senokot S 8.6-50 MG TAB PO SCH ×2 (08:44→20:54)
--- NOTE | 2017-10-02 19:11 | PRG ---
DATE OF SERVICE: 10/02/2017 ATTENDING PHYSICIAN: Dr. Callum Canela. SUBJECTIVE: The patient is a 32-year-old male, who is now postoperative day #8 status post elevation and treatment of depressed skull fracture and repair of complex scalp wound. Today, he is seen, marilu ke and alert, ambulating in the hallway. He is appropriately talkative. He still remains impulsive at times and needs close supervision; however, is not requiring a sitter. He is still having some re turn of memory and still has many questions regarding events surrounding the fall and hospitalization . His GCS is 15. He is ambulatory with assistance. Pain is well controlled and he has been neurolo gically stable. OBJECTIVE: VITAL SIGNS: Temperature 98.1, pulse 81, respirations 16, O2 sat 99% on room air, blood pressure 109 /72. CONSTITUTIONAL: Well-developed, well-nourished male, in no acute distress. PULMONARY: Bilateral breath sounds clear to auscultation. CARDIOVASCULAR: Regular rate and rhythm. Heart sounds normal. ABDOMEN: Soft, nontender, nondistended. Bowel sounds normal. EXTREMITIES: Moves all extremities well. Neurovascularly intact. NEUROLOGIC: GCS of 15. Awake, alert, and oriented x3. INTEGUMENTARY: Surgical incision on right parietal scalp closed with agus. No signs of infection . ASSESSMENT: 1. Status post fall from height. 2. Traumatic subarachnoid hemorrhage and subdural hematoma. 3. Status post surgical repair of depressed skull fracture and extensive scalp laceration. 4. Postconcussive impulsiveness. PLAN: 1. Continue OT and PT is ordered. 2. Discharged to rehab when acceptance received. The patient will be discharged to rehab in [facility] as is planned today. He will need close supervision and ability to have pain medication administra tion as needed. This was discussed at length with case management. Pepcid for PUD prophylaxis. We will not give chemical DVT prophylaxis at this time. The patient is quite ambulatory and should b e encouraged to ambulate with assistance. The patient was seen and examined with Dr. Canela who agrees with the assessment and plan.
[2017-10-03] MEDS: Acetaminophen 325 MG TAB PO SCH ×4 (00:23→17:28)
[2017-10-03] MEDS: traMADol HCl 50 MG TAB PO SCH ×4 (02:54→20:37)
--- NOTE | 2017-10-03 06:40 | PRG ---
DATE OF SERVICE: 10/02/2017 SUBJECTIVE: This is 32-year-old gentleman postop day 8, status post repair of depressed skull fractu re and closure of complex scalp wound, after a fall from greater than 20 feet. The patient is hemodynamically stable and his mental status continues to improve. The pain is contro lled with p.r.n. analgesics. He is currently awaiting. DISPOSITION: Inpatient Rehabilitation in the [facility]. Upon my evaluation, he vocalized no compla ints. OBJECTIVE: VITAL SIGNS: Reviewed and stable. The patient is resting in bed in acute distress. Breathing is no nlabored. MUSCULOSKELETAL: Moves all extremities x4. NEUROLOGIC: No focal deficit noted. GCS is 15. ASSESSMENT AND PLAN: As documented in daily progress note. Continue care as ordered. Continue to m onitor.
[2017-10-03] MEDS: Senokot S 8.6-50 MG TAB PO SCH ×3 (09:10→20:37)
[2017-10-03] MEDS: Famotidine 20 MG TAB PO SCH ×2 (09:11→20:37)
[2017-10-03] MEDS: Polyethylene Glycol 3350 17 GM Packet PO SCH (09:12)
[2017-10-03] MEDS ORDERED: FLU VACC QS2017-18 36 mo. & older 0.5 ML SYRINGE IM ONE (09:45)
--- NOTE | 2017-10-03 17:29 | PRG ---
DATE OF SERVICE: 10/03/2017 HISTORY: This is a 32-year-old man who was admitted on 09/22/2017 following up fall at a kiel b site. The patient sustained multiple trauma including open depressed skull fracture as well as a s mall intracranial hemorrhage. The patient has done well in this admission, which has included physic al and occupational therapy. He is less impulsive today. In fact, his [place] coma scale today is E 4 V4 M6. He ambulates with minimum difficulty. He does exhibit some cognitive deficit still marked by occasional confusion and memory loss. He otherwise has no physical deficits. He tolerates a gene ral diet, having normal bowel and urinary function. OBJECTIVE: VITAL SIGNS: Today includes blood pressure 116/80, pulse is 76, respiration rate 18, temperature is 98.3 degrees Fahrenheit, oxygen saturation is 98% on room air. HEENT: Reveals scalp wound which is intact, clean and dry, no induration or drainage. Pupils are eq ually round and reactive to light and accommodation. HEART: Reveals regular rate and rhythm, no murmurs or gallops auscultated. CHEST: Clear to auscultation bilaterally. Breathing regular and unlabored. ABDOMEN: Soft, nontender and nondistended. NEUROLOGIC: Today reveals no focal deficits present. IMPRESSION: 1. Status post fall post-admission day #11. 2. Stable resolving acute traumatic brain injury. PLAN: Continue with physical and occupational therapy. The patient awaits transfer to [facility] he will begin his inpatient rehabilitation for cognitive therapy. Above findings and plan have bee n discussed with the patient.
[2017-10-04] MEDS: Acetaminophen 325 MG TAB PO SCH ×4 (00:14→17:24)
[2017-10-04] MEDS: traMADol HCl 50 MG TAB PO SCH ×3 (02:48→15:54)
[2017-10-04] MEDS: Senokot S 8.6-50 MG TAB PO SCH ×2 (09:15→20:59)
[2017-10-04] MEDS: Polyethylene Glycol 3350 17 GM Packet PO SCH (09:16)
[2017-10-04] MEDS: Famotidine 20 MG TAB PO SCH ×2 (09:16→20:59)
--- NOTE | 2017-10-04 13:42 | PRG ---
DATE OF SERVICE: 10/04/2017 ATTENDING PHYSICIAN: Dr. Callum Canela. SUBJECTIVE: This is a 32-year-old male who was admitted on 09/22/2017 with a depressed skul l fracture and intracranial hemorrhage, has been stable on the floor and is awaiting placement in the rehab facility in [place]. He vocalizes no complaints this morning and he is up and ambulating wit hout difficulty. OBJECTIVE: VITAL SIGNS: BP 108/72, pulse 66, temperature 98.1, respirations 16, O2 sat 99% on room air. HEENT: Scalp laceration with agus appears clean and dry without drainage or purulent discharge. RESPIRATIONS: He has bilaterally clear breath sounds with normal effort. CARDIOVASCULAR: He has regular rate and rhythm. No murmurs, gallops or rubs. ABDOMEN: Soft, nontender, and nondistended. He has normal bowel sounds. NEUROLOGIC: He has no focal deficits present. His GCS is 15 this morning. LABORATORY DATA: There are no labs to review today. IMAGING: There are no radiographic findings to review today. ASSESSMENT: 1. Status post fall from height. 2. Scalp laceration with depressed skull fracture status post repair and closure. 3. Acute traumatic pain. 4. Altered mental status, improving. PLAN: 1. Continue PT and OT as ordered. 2. Patient is still awaiting transfer to a rehab facility in [place]. Case management is following to assist with placement. This patient was seen and examined along with Dr. Callum Canela on rounds who agreed with the assessm ent and plan.
[2017-10-04] MEDS ORDERED: traMADol HCl 50 MG TAB PO PRN ×2 (16:46)
[2017-10-05] MEDS: Acetaminophen 325 MG TAB PO SCH ×2 (00:31→05:30)
[2017-10-05] MEDS ORDERED: Acetaminophen 325 MG TAB PO PRN (07:12)
[2017-10-05] MEDS: Famotidine 20 MG TAB PO SCH ×2 (08:09→20:22)
[2017-10-05] MEDS: Polyethylene Glycol 3350 17 GM Packet PO SCH (08:10)
[2017-10-05] MEDS: Senokot S 8.6-50 MG TAB PO SCH ×2 (08:10→20:23)
--- NOTE | 2017-10-05 19:23 | PRG ---
DATE OF SERVICE: 10/05/2017 ATTENDING PHYSICIAN: Dr. Callum Canela. SUBJECTIVE: Patient is a 32-year-old male who was admitted on 09/22/2017 with a depressed s kull fracture and intracranial hemorrhage. He has been stable on the floor, neurologically much impr lisa, and is transferring to rehab tomorrow morning. He localizes no complaints this morning. OBJECTIVE: VITAL SIGNS: BP 109/58, pulse 88, temperature 98.1, respirations 16, O2 sat 98% on room air. GENERAL APPEARANCE: Adult male lying comfortably in bed in no acute distress. HEENT: Scalp laceration with agus appears clean and dry without drainage or purulent discharge. LUNGS: He has clear breath sounds bilaterally with normal effort. CARDIOVASCULAR: He has regular rate and rhythm. No murmurs, gallops, or rubs. ABDOMEN: Soft, nontender, nondistended. Bowel sounds are normal. NEUROLOGIC: He has no focal deficits present. His GCS is 15 this morning. LABORATORY DATA: There are no labs to review today. IMAGING: There are no radiographs to review today. ASSESSMENT: 1. Status post fall from height. 2. Scalp laceration with depressed skull fracture, status post repair and closure. 3. Acute traumatic pain. 4. Altered mental status, improving. PLAN: 1. Continue PT and OT. 2. Patient has been approved for rehab facility at [place]. He is scheduled to discharge tomorrow morning. This patient was seen and examined along with Dr. Callum Canela in rounds, agrees with this assessmen t and plan.
[2017-10-06 08:16] VITALS: BP 101/55; TEMP 97.7
[2017-10-06] MEDS: Senokot S 8.6-50 MG TAB PO SCH (08:51)
[2017-10-06] MEDS: Polyethylene Glycol 3350 17 GM Packet PO SCH (08:51)
[2017-10-06] MEDS: Famotidine 20 MG TAB PO SCH (08:51)
--- NOTE | 2017-10-07 02:35 | DIS ---
DATE OF ADMISSION: 09/22/2017 DATE OF DISCHARGE: 10/06/2017 ADMITTING PHYSICIAN: Marco Bentley MD DISCHARGING PHYSICIAN: Callum Canela DO TRAUMA ACTIVATION LEVEL: 2. CHIEF COMPLAINT: Skull fracture. HISTORY OF PRESENT ILLNESS: The patient is a 32-year-old male who presented to the [place] [facility] via EMS after sustaining a fall of reportedly greater than 20 feet. The patient was amnestic of events and confused upon presentation. He was evaluated in the emergency room, found to have a scalp lacera tion with open skull fracture and a traumatic brain injury. His initial GCS was 14, broken down as E 4, V4, M6. Neurosurgery was consulted and Trauma Service was asked to admit. Imaging data revealed that the patient had subarachnoid as well as subdural hemorrhages as well as a depressed comminuted c alvarial fracture. The patient was admitted to the CCU for close neurological monitoring. The patie nt underwent a frontal craniotomy for elevation and treatment of depressed skull fracture and repair of complex scalp wound on 09/23/2017. The patient was later transferred to the surgical floor where he continued to make significant neurological improvements. His pain control was optimized and he be kelly working with physical and occupational therapy for mobility. Patient was determined to be a good rehab candidate and although placement did take some time. He was eventually placed at a neuro reha b facility in [place]. Patient was discharged to rehab on 10/06/2017 in much improved condition. A t the time of discharge, he was medically stable. DISCHARGE MEDICATIONS: The patient was discharged with all of his inpatient medications. ACTIVITY INSTRUCTIONS: The patient was discharged with instructions for activity as tolerated. NOURISHMENT INSTRUCTIONS: The patient was discharged on a regular diet. THERAPY INSTRUCTIONS: The patient was discharged with instructions for rehab to do occupational, phy sical therapy as well as a speech evaluation and treatment. FOLLOWUP INSTRUCTIONS: The patient is instructed to follow up with Dr. Nain Goodman in 14 day s. The patient also instructed to follow up with Dr. Canela if needed. However, no formal followup i s scheduled with Dr. Canela. The patient also instructed to follow up with his primary care physician in 7 days as needed. This patient was seen and examined along with Dr. Canela on rounds who agrees with this discharge plan .
== END 2017-10-06 09:45 | DRG 24 ==
LOC: ERS 21:29 → EDBD 21:29 → CCU 22:51 → EDBD 22:51 → SURG A 09-24 16:09
PROVIDERS: ADMIT Surgery; ATTEND Surgery
PROC: 0NS004Z Reposition Skull with Internal Fixation Device, Open Approach (ICD-10-PCS; principal; 2017-09-23)
PROC: 0JQ00ZZ Repair Scalp Subcutaneous Tissue and Fascia, Open Approach (ICD-10-PCS; 2017-09-23)
DX: S06.6X1A Traumatic subarachnoid hemorrhage with loss of consciousness of 30 minutes or less, initial encounter (principal); Z23 Encounter for immunization; S02.0XXB Fracture of vault of skull, initial encounter for open fracture; S06.5X1A Traumatic subdural hemorrhage with loss of consciousness of 30 minutes or less, initial encounter; W11.XXXA Fall on and from ladder, initial encounter; Y92.69 Other specified industrial and construction area as the place of occurrence of the external cause
CPT/HCPCS: 36415; 70450; 71045; 71260; 72125; 72170; 74177; 80048; 80053; 80307; 83605; 83690; 83735; 84100; 85025; 85610; 85730; 86850; 86900; 86901; 90471; 90682; 90715; 93005; 96374; A4216; C1713; G0008; G0390; G8978-GP-CK; G8979-GP-CJ; G8987-GO-CM; G8988-GO-CI; G9165-GN-CM; G9166-GN-CI; J0131; J1100; J2001; J2060; J2270; J2405; J2704; J3010; J3490; Q2036; S0028